=== PATIENT | female | born 1995 | race Caucasian/White ===

== ENCOUNTER 2018-04-04 07:43 | Emergency (ER) | payer OTHER ==
[2018-04-04] MEDS ORDERED: NS 1,000 ML IV ONE (10:21)
[2018-04-04] MEDS ORDERED: ONDANSETRON 4 MG/2 ML VIAL IVP ONE (10:21)
--- NOTE | 2018-04-04 10:23 | EDPHY ---
H & P Time Seen by Provider: 04/04/18 10:12 HPI/ROS: CHIEF COMPLAINT: Vomiting, headache HISTORY OF PRESENT ILLNESS: 22-year-old female presents to the emergency department with 8 episodes of vomiting since last night. She states that she started having headache 2 days ago. She is photophobic. No other visual changes. No chest pain or difficulty breathing. No fevers or chills. No diarrhea. No abdominal pain. Last menstrual period ended a week and half ago and she denies . Denies cough. She tried taking ibuprofen without relief. She describes no reported trauma. She has had mild headaches but nothing quite like this. REVIEW OF SYSTEMS: Constitutional: No fever, no chills. Eyes: No double or blurry vision. ENT: No sore throat. Respiratory: No cough, no shortness of breath. Cardiac: No chest pain. Gastrointestinal: Vomiting. No abdominal pain or diarrhea Genitourinary: No dysuria. Musculoskeletal: No neck or back pain. Skin: No rashes. Neurological: headache. Past Medical/Surgical History: IUD Social History: Single Smoking Status: Never smoked Physical Exam: General Appearance: Alert, no distress. Mentating normally and answering questions appropriately. Eyes: Pupils equal and round. Extraocular motions are all intact. ENT: Mouth: Mucous membranes moist. Respiratory: No wheezing, rhonchi, or rales, lungs are clear to auscultation. Cardiovascular: Regular rate and rhythm. Gastrointestinal: Abdomen is soft and nontender, no masses, no rebound or guarding, bowel sounds normal. Neurological: Alert and oriented x 3, cranial nerves II through XII grossly intact Skin: Warm and dry, no rashes. Musculoskeletal: Nontender to palpate along the cervical, thoracic or lumbar spine. Neck is supple. Extremities: Full range of motion and no peripheral edema. Psychiatric: Patient is oriented X 3, there is no agitation. Constitutional: Initial Vital Signs Temperature (C) 36.8 C 04/04/18 07:47 Heart Rate 94 04/04/18 07:47 Respiratory Rate 17 04/04/18 07:47 Blood Pressure 155/90 H 04/04/18 07:47 O2 Sat (%) 98 04/04/18 07:47 O2 Delivery Mode Room Air Allergies/Adverse Reactions: hydrocodone Allergy (Verified 04/04/18 07:46) Home Medications: Medication Instructions Recorded NK [No Known Home Meds] 04/04/18 Medical Decision Making ED Course/Re-evaluation: 22-year-old female presents to the emergency department with headache and vomiting. The patient had an IV established and was given IV normal saline, IV Toradol, IV Decadron and Zofran. She was feeling much better. She was drinking juice. Her headache had nearly completely resolved her nausea had dissipated. I do not think imaging studies are indicated. I doubt meningitis. Patient was instructed to return to the emergency department if any change in symptoms or felt worse in any way. She was comfortable with this plan. Differential Diagnosis: Including but not limited to dehydration, electrolyte abnormality, migraine headache, subarachnoid hemorrhage, migraine headache, tension headache and infectious causes such as meningitis, pharyngitis and sinusitis. - Data Points Laboratory Results: Laboratory Results 04/04/18 10:32 04/04/18 10:32 04/04/18 04/04/18 04/04/18 10:32 10:32 10:32 WBC 8.21 10^3/uL 10^3/uL (3.80-9.50) RBC 5.02 10^6/uL 10^6/uL (4.18-5.33) Hgb 15.4 g/dL g/dL (12.6-16.3) Hct 44.0 % % (38.0-47.0) MCV 87.6 fL fL (81.5-99.8) MCH 30.7 pg pg (27.9-34.1) MCHC 35.0 g/dL g/dL (32.4-36.7) RDW 12.3 % % (11.5-15.2) Plt Count 247 10^3/uL 10^3/uL (150-400) MPV 9.8 fL fL (8.7-11.7) Neut % (Auto) 73.3 % % (39.3-74.2) Lymph % (Auto) 14.7 % L % (15.0-45.0) [place] % (Auto) 11.3 % % (4.5-13.0) Eos % (Auto) 0.0 % L % (0.6-7.6) Baso % (Auto) 0.5 % % (0.3-1.7) Nucleat RBC Rel Count 0.0 % % (0.0-0.2) Absolute Neuts (auto) 6.01 10^3/uL 10^3/uL (1.70-6.50) Absolute Lymphs (auto) 1.21 10^3/uL 10^3/uL (1.00-3.00) Absolute Monos (auto) 0.93 10^3/uL H 10^3/uL (0.30-0.80) Absolute Eos (auto) 0.00 10^3/uL L 10^3/uL (0.03-0.40) Absolute Basos (auto) 0.04 10^3/uL 10^3/uL (0.02-0.10) Absolute Nucleated RBC 0.00 10^3/uL 10^3/uL (0-0.01) Immature Gran % 0.2 % % (0.0-1.1) Immature Gran # 0.02 10^3/uL 10^3/uL (0.00-0.10) Sodium 144 mEq/L mEq/L (135-145) Potassium 3.4 mEq/L mEq/L (3.3-5.0) Chloride 104 mEq/L mEq/L (97-110) Carbon Dioxide 22 mEq/l mEq/l (22-31) Anion Gap 18 mEq/L H mEq/L (8-16) BUN 8 mg/dL mg/dL (7-23) Creatinine 0.6 mg/dL mg/dL (0.6-1.0) Estimated GFR > 60 Glucose 86 mg/dL mg/dL (70-100) Calcium 10.3 mg/dL mg/dL (8.5-10.4) Beta HCG, Qual NEGATIVE Medications Given: Discontinued Medications Dexamethasone (Decadron Injection) 10 mg IVP EDNOW ONE Stop: 04/04/18 11:37 Last Admin: 04/04/18 11:44 Dose: 10 mg Sodium Chloride (Ns) 1,000 mls @ 0 mls/hr IV ONCE ONE PRN Reason: Wide Open Stop: 04/04/18 10:22 Last Admin: 04/04/18 10:38 Dose: 1,000 mls Ketorolac Tromethamine (Toradol) 30 mg IVP EDNOW ONE Stop: 04/04/18 11:37 Last Admin: 04/04/18 11:49 Dose: 30 mg Lorazepam (Ativan Injection) 0.5 mg IVP EDNOW ONE Stop: 04/04/18 11:37 Last Admin: 04/04/18 11:54 Dose: 0.5 mg Ondansetron HCl (Zofran) 4 mg IVP EDNOW ONE Stop: 04/04/18 10:22 Last Admin: 04/04/18 10:38 Dose: 4 mg Departure - Departure Disposition: Home, Routine, Self-Care Clinical Impression: Dehydration Headache Qualifiers: Headache type: unspecified Headache chronicity pattern: acute headache Intractability: not intractable Qualified Code(s): R51 - Headache Vomiting Qualifiers: Vomiting type: unspecified Vomiting Intractability: non-intractable Nausea presence: with nausea Qualified Code(s): R11.2 - Nausea with vomiting, unspecified Condition: Good Instructions: Dehydration (ED), Acute Headache (ED), Acute Nausea and Vomiting (ED) Additional Instructions: Clear liquids and slowly advance diet as tolerated. Return to the emergency department if you develop recurring headache, vomiting, altered mental status, or if you feel worse in any way. Referrals: George Stevenson DO [Doctor of Osteopathy] - 1 day, if not improved (Primary care provider occupational therapy director)
[2018-04-04 10:54] LABS: PLATELET COUNT 247 10^3/uL (150-400)
[2018-04-04] MEDS ORDERED: LORazepam 2 MG/ML INJ IVP ONE (11:36)
[2018-04-04] MEDS ORDERED: DEXAMETHASONE 10 MG/ML VIAL IVP ONE (11:36)
[2018-04-04] MEDS ORDERED: KETOROLAC 30 MG/1 ML SDV IVP ONE (11:36)
[2018-04-04 12:55] VITALS: BP 118/68
== END 2018-04-04 12:55 | disposition home or self-care (01) ==
DX: R51 Headache (principal); E86.0 Dehydration; R11.2 Nausea with vomiting, unspecified
CPT/HCPCS: 96374; J1100; J1885; J2060; J2405